=== PATIENT | female | born 1985 | race Caucasian/White ===

== ENCOUNTER 2022-03-02 12:25 | Emergency (ER) | payer OTHER, SELFPAY ==
--- NOTE | 2022-03-02 13:12 | ED.NURSE ---
pt left without being seen
== END 2022-03-02 13:12 | disposition left against medical advice (07) ==
LOC: ED 13:10
PROVIDERS: PCP Physician Assistant Medical
DX: Z53.21 Procedure and treatment not carried out due to patient leaving prior to being seen by health care provider (principal)

== ENCOUNTER 2022-03-06 06:46 | Emergency (ER) | payer OTHER, SELFPAY ==
[2022-03-06 06:51] VITALS: BP 105/62; PULSE 94; RESP 18; TEMP 36.6; O2SAT 98; BMI 24.6
--- NOTE | 2022-03-06 07:16 | ED.GENADULT ---
HPI - General Adult General Date Seen: 03/06/22 <Wolf Luis MD - Last Filed: 03/06/22 08:05> Chief complaint: Abdominal Pain <Wolf Luis MD - Last Filed: 03/06/22 08:05> Stated complaint: vomitting <Wolf Luis MD - Last Filed: 03/06/22 08:05> Time Seen by Provider: 03/06/22 06:50 <Wolf Luis MD - Last Filed: 03/06/22 08:05> Source: patient <Wolf Luis MD - Last Filed: 03/06/22 08:05> Mode of arrival: ambulatory <Wolf Luis MD - Last Filed: 03/06/22 08:05> Limitations: no limitations <Wolf Luis MD - Last Filed: 03/06/22 08:05> History of Present Illness HPI narrative: Patient is a 36-year-old female who comes in with couple of weeks abdominal pain and nausea. This is gotten worse over the past for five days. She came to the emergency department four days ago but left without being seen. Since that time she continues to have epigastric pain and nausea. She started Ozempic six or eight weeks ago for weight loss and did not have nausea after the 1st couple of injections. She denies a feeling of acid reflux but does intermittently take Carafate when she gets this type of pain. Year ago she underwent a laparoscopy for pelvic pain that found nothing. She has had no black or bloody stools. She has never had an EGD. Couple of bowel movements she that she has had in the past week have both been loose. Last night she feels that she may have over eaten the pain came on around 10:00 a.m. in the evening and lasted all night. She has not taken anything to help with pain. There are no specific foods that trigger her symptoms. She only drinks water. No one else at home has been ill. She takes some vitamins and herbal remedies given to her by a credit control officer thick who did a GI mapping and told her that her bad bacteria are over growing her good bacteria. <Wolf Luis MD - Last Filed: 03/06/22 08:05> Related Data Home medications: Home Medications Medication Instructions Recorded Confirmed semaglutide 1 mg/dose (2 mg/1.5 0.25 mg subcut QWEEK 03/06/22 03/06/22 mL) subcutaneous pen injector (Ozempic) <Wolf Luis MD - Last Filed: 03/06/22 08:05> Allergies/adverse reactions: Allergies Allergy/AdvReac Type Severity Reaction Status Date / Time morphine Allergy Mild Rash Verified 03/06/22 08:06 amoxicillin Allergy Verified 03/06/22 08:06 sertraline [From Zoloft] Allergy Verified 03/06/22 08:06 <Wolf Luis MD - Last Filed: 03/06/22 08:05> Review of Systems Narrative: Review of systems is outlined above otherwise noted to be negative. <Wolf Luis MD - Last Filed: 03/06/22 08:05> PFSH PFSH Social History: Social History Smoking Status: Former smoker Do you use any of these nicotine containing products: None Second hand tobacco smoke exposure: No How often do you have a drink containing alcohol: 2-4 times a month How many standard drinks containing alcohol do you have on a typical day: 1 or 2 How often do you have six or more drinks on one occasion: Never AUDIT-C Alcohol total score: 2 Non-prescribed substance use: denies use <Wolf Luis MD - Last Filed: 03/06/22 08:05> Exam Narrative: Exam Narrative: Vitals noted. HEENT: Conjunctiva clear. Neck is supple without adenopathy, thyromegaly. Lungs: Clear to auscultation in all [place]. No wheezes, rales, rhonchi. Heart: Regular rate and rhythm without murmur. Abdomen: Soft and nontender. No guarding, rigidity, rebound. Bowel sounds are normal. No palpable masses. Mild epigastric tenderness. Negative Fernandes sign. Extremities: No cyanosis or edema. Good distal pulses. Skin: No abnormalities noted of the exposed skin. Neurologic: Awake, alert, fully oriented. Neurologic exam is nonfocal. <Wolf Luis MD - Last Filed: 03/06/22 08:05> Const: Vital Signs, click to edit/add: Vital Signs - 24 hr 03/06/22 06:51 Temperature 97.8 F Pulse Rate [Right Pulse Oximeter] 94 Respiratory Rate 18 Blood Pressure [Ri ght Upper Arm] 105/62 Pulse Oximetry 98 Oxygen Delivery Me thod Room Air <Wolf Luis MD - Last Filed: 03/06/22 08:05> Vital Signs, click to edit/add: Vital Signs - 24 hr 03/06/22 06:51 Temperature 97.8 F Pulse Rate [Right Pulse Oximeter] 94 Respiratory Rate 18 Blood Pressure [Ri ght Upper Arm] 105/62 Pulse Oximetry 98 Oxygen Delivery Me thod Room Air <Zoey Henderson MD - Last Filed: 03/06/22 09:10> Course Course Hospital Course: Patient was seen and examined. Labs and a CT of her abdomen and pelvis are ordered. IV is established and she received 1 L of normal saline as well as 4 mg of IV Zofran. She declines the need for pain medication at this time. <Wolf Luis MD - Last Filed: 03/06/22 08:05> Reevaluation(s) Reevaluation #1: Reviewed patient's CT with her showing some possible enteritis. Reviewed her normal labs that were ordered. She had questions whether she should stay on her Ozempic. Did call Pharmacy in review this with them. It is my opinion that she should hold this for the time being certainly. It will not harm her to hold it and may actually help her symptoms. We will go under the assumption that she is having an acute issue with enteritis but there are components to her story that show some chronicity over the last 2 months. She has had no international travel. She states she had seen a GI specialist before and they had scheduled her for an upper GI but life happened in she never went through with that. I have reviewed with her that she should talk to the GI specialist, give them this CT report and given the underlying chronicity of some of her symptoms, would recommend following through with the EGD. There could be a possibility of inflammatory bowel disease presentation. We will initiate Protonix and Zofran for outpatient management of symptoms with probable enteritis on CT. <Zoey Henderson MD - Last Filed: 03/06/22 09:10> Time: 09:06 <Zoey Henderson MD - Last Filed: 03/06/22 09:10> Vital Signs Vital signs: Initial Vital Signs Temperature 97.8 F 03/06/22 06:51 Temperature Source Temporal Artery Scan 03/06/22 06:51 Pulse Rate 94 03/06/22 06:51 Respiratory Rate 18 03/06/22 06:51 Blood Pressure 105/62 03/06/22 06:51 Blood Pressure Mean 76 03/06/22 06:51 Blood Pressure Position Sitting 03/06/22 06:51 Pulse Oximetry 98 03/06/22 06:51 Oxygen Delivery Method 03/06/22 06:51 Vital Signs Temperature 97.8 F 03/06/22 06:51 Pulse Rate 94 03/06/22 06:51 Respiratory Rate 18 03/06/22 06:51 Blood Pressure 105/62 03/06/22 06:51 Pulse Oximetry 98 03/06/22 06:51 Oxygen Delivery Method 03/06/22 06:51 Temperature 97.8 F 03/06/22 06:51 Pulse Rate 94 03/06/22 06:51 Respiratory Rate 18 03/06/22 06:51 Blood Pressure 105/62 03/06/22 06:51 Pulse Oximetry 98 03/06/22 06:51 Oxygen Delivery Method 03/06/22 06:51 <Wolf Luis MD - Last Filed: 03/06/22 08:05> Initial Vital Signs Temperature 97.8 F 03/06/22 06:51 Temperature Source Temporal Artery Scan 03/06/22 06:51 Pulse Rate 94 03/06/22 06:51 Respiratory Rate 18 03/06/22 06:51 Blood Pressure 105/62 03/06/22 06:51 Blood Pressure Mean 76 03/06/22 06:51 Blood Pressure Position Sitting 03/06/22 06:51 Pulse Oximetry 98 03/06/22 06:51 Oxygen Delivery Method 03/06/22 06:51 Vital Signs Temperature 97.8 F 03/06/22 06:51 Pulse Rate 94 03/06/22 06:51 Respiratory Rate 18 03/06/22 06:51 Blood Pressure 105/62 03/06/22 06:51 Pulse Oximetry 98 03/06/22 06:51 Oxygen Delivery Method 03/06/22 06:51 Temperature 97.8 F 03/06/22 06:51 Pulse Rate 94 03/06/22 06:51 Respiratory Rate 18 03/06/22 06:51 Blood Pressure 105/62 03/06/22 06:51 Pulse Oximetry 98 03/06/22 06:51 Oxygen Delivery Method 03/06/22 06:51 <Zoey Henderson MD - Last Filed: 03/06/22 09:10> Medical Decision Making Lab Data Lab results reviewed: Yes I reviewed the patient's lab results <Zoey Henderson MD - Last Filed: 03/06/22 09:10> Labs: Lab Results 03/06/22 03/06/22 Range/Units 07:30 07:30 WBC 7.29 (4.50-11.00) K/uL RBC 4.53 (4.00-5.20) m/uL Hgb 13.2 (12.0-16.0) gm/dL Hct 40.1 (33.0-51.0) % MCV 89 (80-100) fL MCH 29 (26-34) pg MCHC 33 (32-36) gm/dL RDW Coeff of [place] 13.0 (11.5-15.5) % Plt Count 223 (140-440) K/uL Neut % (Auto) 59.3 (42.0-72.0) % Lymph % (Auto) 28.8 (20-44) % [place] % (Auto) 6.9 (0.0-11.0) % Eos % (Auto) 4.3 (0.0-7.0) % Baso % (Auto) 0.7 (0.0-3.0) % Neut # (Auto) 4.33 (1.7-7.0) K/uL Lymph # (Auto) 2.10 (0.90-2.90) K/uL [place] # (Auto) 0.50 (0.00-0.90) K/UL Eos # (Auto) 0.31 (0.00-0.50) K/uL Baso # (Auto) 0.05 (0.00-0.30) K/uL Abs Immat Gran (auto) 0.00 (0.00-0.30) K/uL Imm/Tot Granulo (auto) 0.0 % Sodium 139 (135-149) mmol/L Potassium 4.6 (3.6-5.1) mmol/L Chloride 105 (96-114) mmol/L Carbon Dioxide 25 (20-32) mmol/L BUN 13 (5-24) mg/dL Creatinine 0.7 (0.5-1.5) mg/dL Estimated Creat Clear 105.97 Estimated GFR 113 ml/min Glucose 84 (60-115) mg/dL Calcium 9.3 (8.4-10.6) mg/dL Total Bilirubin 0.6 (0.1-1.5) mg/dL Direct Bilirubin 0.2 (0.0-0.5) mg/dL AST 37 H (12-35) U/L ALT 20 (4-35) U/L Alkaline Phosphatase 48 (40-150) U/L Total Protein 6.8 (6.0-8.3) g/dL Albumin 4.5 (3.3-5.0) g/dL Lipase 109 (23-300) U/L <Wolf Luis MD - Last Filed: 03/06/22 08:05> Lab Results 03/06/22 03/06/22 Range/Units 07:30 07:30 WBC 7.29 (4.50-11.00) K/uL RBC 4.53 (4.00-5.20) m/uL Hgb 13.2 (12.0-16.0) gm/dL Hct 40.1 (33.0-51.0) % MCV 89 (80-100) fL MCH 29 (26-34) pg MCHC 33 (32-36) gm/dL RDW Coeff of [place] 13.0 (11.5-15.5) % Plt Count 223 (140-440) K/uL Neut % (Auto) 59.3 (42.0-72.0) % Lymph % (Auto) 28.8 (20-44) % [place] % (Auto) 6.9 (0.0-11.0) % Eos % (Auto) 4.3 (0.0-7.0) % Baso % (Auto) 0.7 (0.0-3.0) % Neut # (Auto) 4.33 (1.7-7.0) K/uL Lymph # (Auto) 2.10 (0.90-2.90) K/uL [place] # (Auto) 0.50 (0.00-0.90) K/UL Eos # (Auto) 0.31 (0.00-0.50) K/uL Baso # (Auto) 0.05 (0.00-0.30) K/uL Abs Immat Gran (auto) 0.00 (0.00-0.30) K/uL Imm/Tot Granulo (auto) 0.0 % Sodium 139 (135-149) mmol/L Potassium 4.6 (3.6-5.1) mmol/L Chloride 105 (96-114) mmol/L Carbon Dioxide 25 (20-32) mmol/L BUN 13 (5-24) mg/dL Creatinine 0.7 (0.5-1.5) mg/dL Estimated Creat Clear 105.97 Estimated GFR 113 ml/min Glucose 84 (60-115) mg/dL Calcium 9.3 (8.4-10.6) mg/dL Total Bilirubin 0.6 (0.1-1.5) mg/dL Direct Bilirubin 0.2 (0.0-0.5) mg/dL AST 37 H (12-35) U/L ALT 20 (4-35) U/L Alkaline Phosphatase 48 (40-150) U/L Total Protein 6.8 (6.0-8.3) g/dL Albumin 4.5 (3.3-5.0) g/dL Lipase 109 (23-300) U/L <Zoey Henderson MD - Last Filed: 03/06/22 09:10> Imaging Data CT scan - abdomen: Attestation: I have reviewed the pertinent imaging results. <Zoey Henderson MD - Last Filed: 03/06/22 09:10> Radiologist's impression: Patient: RYNE VASQUEZ Facility:?[facility] Patient ID:?[id number] Site Patient ID:?[id number]. Site :?[id number] Study:?CT Abdomen/Pelvis W/ 77CC [id number]/[id number] 8:07:07 AM Ordering Physician:Compa Bloom Final Report: INDICATION: ABD PAIN TECHNIQUE: CT abdomen and pelvis with 77 CC ISOVUE-370 IV contrast. COMPARISON: None. FINDINGS: The liver is normal in size, shape and attenuation. Hypodensity adjacent to the falciform ligament which likely represents focal fatty infiltrate. Gallbladder and biliary tree are normal. The spleen, adrenal glands and pancreas are within normal limits. Few punctate nonobstructing left intrarenal calculi. No evidence of ureteral stone or hydronephrosis. Minimally dilated fluid-filled loops of small bowel throughout the abdomen which are nonspecific but may relate to a mild enteritis. No evidence of bowel obstruction. The appendix appears unremarkable. No evidence of free fluid. Trace nonspecific free fluid within the pelvis which is likely physiologic. Small amount of nonspecific fluid within the endometrial cavity. The lower chest is unremarkable. IMPRESSION: Minimally dilated fluid-filled loops of small bowel throughout the abdomen which are nonspecific but may relate to a mild enteritis. Otherwise, no evidence of acute intra-abdominal process. Few punctate nonobstructing left intrarenal calculi. No evidence of ureteral stone or hydronephrosis. Please note that all CT scans at this facility use dose modulation, iterative reconstruction, and/or weight-based dosing when appropriate to reduce radiation dose to as low as reasonably achievable. Dictated by Gualberto Lofton MD @ 03/06/2022 8:40:09 AM (Electronic Signature) <Zoey Henderson MD - Last Filed: 03/06/22 09:10> Critical Care Time Critical Care Time Critical Care Time: No <Zoey Henderson MD - Last Filed: 03/06/22 09:10> Discharge Plan Discharge Clinical Impression: Enteritis <Wolf Luis MD - Last Filed: 03/06/22 08:05> Condition: Stable <Wolf Luis MD - Last Filed: 03/06/22 08:05> Instructions: Enteritis (ED) <Wolf Luis MD - Last Filed: 03/06/22 08:05> Additional Instructions: Would recommend frequent small sips of clear liquids for the next 24-48 hours, see if you can advance your diet at that point. Take Protonix daily for the next 1-2 weeks, use Zofran as needed to help control nausea so that you can take in fluids. I do recommend that you contact your private branch exchange installer, share the new report of the enteritis on the CT and her ongoing underlying epigastric symptoms preceding this. I do think that you should follow through with having an upper scope. If with the outlined measures you were still unable to tolerate oral fluids, have increased abdominal pain develops fever with this, do need to be re-evaluated. Do recommend holding the Ozempic until you are improving. <Wolf Luis MD - Last Filed: 03/06/22 08:05> Activity Level: Activity as Tolerated <Wolf Luis MD - Last Filed: 03/06/22 08:05> Activity as Tolerated <Zoey Henderson MD - Last Filed: 03/06/22 09:10> Discharge Diet: Clear Liquid <Wolf Luis MD - Last Filed: 03/06/22 08:05> Clear Liquid <Zoey Henderson MD - Last Filed: 03/06/22 09:10> Prescriptions: No Action Ozempic 1 mg/dose (2 mg/1.5 mL) pen injector 0.25 mg subcut QWEEK Rx Instructions: for 4 doses <Wolf Luis MD - Last Filed: 03/06/22 08:05> Follow Up/Referrals: Sakina Fitzgerald PA-C [Primary Care Provider] - <Wolf Luis MD - Last Filed: 03/06/22 08:05> Stand Alone Forms: MyHealth Info Instructions <Wolf Luis MD - Last Filed: 03/06/22 08:05>
--- NOTE | 2022-03-06 07:18 | CRLHL7_ITS ---
For Patients: As a result of the Century Cures Act, medical imaging exams and procedure reports are released immediately into your electronic medical record. You may view this report before your referring provider. If you have questions, please contact your health care provider. INDICATION: ABD PAIN TECHNIQUE: CT abdomen and pelvis with 77 CC ISOVUE-370 IV contrast. COMPARISON: None. FINDINGS: The liver is normal in size, shape and attenuation. Hypodensity adjacent to the falciform ligament which likely represents focal fatty infiltrate. Gallbladder and biliary tree are normal. The spleen, adrenal glands and pancreas are within normal limits. Few punctate nonobstructing left intrarenal calculi. No evidence of ureteral stone or hydronephrosis. Minimally dilated fluid-filled loops of small bowel throughout the abdomen which are nonspecific but may relate to a mild enteritis. No evidence of bowel obstruction. The appendix appears unremarkable. No evidence of free fluid. Trace nonspecific free fluid within the pelvis which is likely physiologic. Small amount of nonspecific fluid within the endometrial cavity. The lower chest is unremarkable. IMPRESSION: Minimally dilated fluid-filled loops of small bowel throughout the abdomen which are nonspecific but may relate to a mild enteritis. Otherwise, no evidence of acute intra-abdominal process. Few punctate nonobstructing left intrarenal calculi. No evidence of ureteral stone or hydronephrosis. Please note that all CT scans at this facility use dose modulation, iterative reconstruction, and/or weight-based dosing when appropriate to reduce radiation dose to as low as reasonably achievable. Dictated by Gualberto Lofton MD @ 03/06/2022 8:40:09 AM (Electronically Signed)
[2022-03-06] MEDS: ONDANSETRON 2 MG/ML inj 4 MG IVP (07:45)
[2022-03-06] MEDS: 0.9 % SODIUM CHLORIDE 1000 ml 1,000 ML 500 ML IV (07:45)
[2022-03-06 07:48] LABS: Basophils Absolute Auto 0.05 K/uL (0.00-0.30); Basophils Percent Auto 0.7 % (0.0-3.0); Eosinophils Absolute Auto 0.31 K/uL (0.00-0.50); Eosinophils Percent Auto 4.3 % (0.0-7.0); Hematocrit 40.1 % (33.0-51.0); Hemoglobin* 13.2 gm/dL (12.0-16.0); Lymphocytes Percent Auto 28.8 % (20-44); Mean Corpuscular HGB Conc 33 gm/dL (32-36); Mean Corpuscular Hemoglobin 29 pg (26-34); Mean Corpuscular Volume 89 fL (80-100); Monocytes Percent Auto 6.9 % (0.0-11.0); Neutrophils Absolute Auto 4.33 K/uL (1.7-7.0); Neutrophils Percent Auto 59.3 % (42.0-72.0); Platelet Count* 223 K/uL (140-440); Red Blood Count 4.53 m/uL (4.00-5.20); White Blood Count* 7.29 K/uL (4.50-11.00)
[2022-03-06 08:03] LABS: Slide Review Reflex No
[2022-03-06 08:14] LABS: Albumin* 4.5 g/dL (3.3-5.0); Chloride* 105 mmol/L (96-114)
[2022-03-06 08:15] LABS: Potassium* 4.6 mmol/L (3.6-5.1); Sodium* 139 mmol/L (135-149)
[2022-03-06 08:17] LABS: Bilirubin Direct* 0.2 mg/dL (0.0-0.5); Bilirubin Total* 0.6 mg/dL (0.1-1.5); Carbon Dioxide* 25 mmol/L (20-32); Creatinine* 0.7 mg/dL (0.5-1.5); Est. Creatinine Clearance* 105.97; Estimated Glomerular Filt Rate 113 ml/min; Total Protein* 6.8 g/dL (6.0-8.3)
[2022-03-06 08:18] LABS: Alanine Aminotransferase* 20 U/L (4-35); Alkaline Phosphatase* 48 U/L (40-150); Aspartate Amino Transferase* 37 U/L (12-35); Blood Urea Nitrogen* 13 mg/dL (5-24); Calcium* 9.3 mg/dL (8.4-10.6); Glucose* 84 mg/dL (60-115); Lipase* 109 U/L (23-300)
== END 2022-03-06 09:28 | disposition home or self-care (01) ==
PROVIDERS: Family Medicine; Emergency Provider Family Medicine; PCP Physician Assistant Medical
DX: K52.9 Noninfective gastroenteritis and colitis, unspecified (principal)
CPT/HCPCS: 36415; 74177; 80048; 80076; 83690; 85025; 96361; 96374; 99284; J2405; J7030; Q9967

== ENCOUNTER 2023-09-18 17:51 | Emergency (ER) | payer MEDICARE, SELFPAY ==
[2023-09-18 17:58] VITALS: BP 112/72; PULSE 114; RESP 18; TEMP 37; O2SAT 100; BMI 23.5
--- NOTE | 2023-09-18 18:52 | ED.BACK ---
HPI - Back Pain/Injury General Chief Complaint: Back Injury/Pain Stated Complaint: Hurt back, fall Time Seen by Provider: 09/18/23 17:53 History of Present Illness HPI Narrative: This 37-year-old female comes in with rather sudden onset of severe pain in her low back that radiates down her right leg. She does have a history of lumbar radiculopathy and has had a surgery in her low back because of previous symptoms. Today she was bending some when she was mopping the floor and had rather sudden onset of pain that appears to be a recurrence of disc herniation and lumbar radiculopathy. She does not describe any other strenuous activity or mechanism of injury that would explain the symptoms. She is otherwise in good health. Related Data Previous Rx's ?Medication ?Instructions ?Recorded methylprednisolone 4 mg tablets in See Rx Instructions PO .COMPLEX 09/18/23 a dose pack (Medrol (Cheo)) #21 ea Allergies Allergy/AdvReac Type Severity Reaction Status Date / Time morphine Allergy Mild Rash Verified 06/30/22 15:27 amoxicillin Allergy Verified 06/30/22 15:27 sertraline [From Zoloft] Allergy Verified 06/30/22 15:27 Review of Systems Status of ROS: Reports: 10 or more systems reviewed and unremarkable except as noted in History and below Narrative: Constitutional: No fevers, no weight gain or loss. Eyes: No discharge. No vision changes. HENT: No congestion, no sore throat, no ear pain. Cardiovascular: No chest pain, no palpitations. Respiratory: No shortness of breath, no wheezes, no cough. Gastrointestinal: No abdominal pain, no vomiting, no diarrhea. Genitourinary: No dysuria, no hematuria. Musculoskeletal: Low back pain radiating down the right leg with decreased range of motion related to the pain. Skin: No rashes, no pruritis. Neurological: No dizziness, weakness, sensory change, speech change. Endo/Heme/Allergies: No bruising or bleeding. No polydipsia. Pysch: no suicidality, no anxiety, no insomnia. All other systems reviewed and are negative. [facility] Social History Smoking Status: Never smoker Do you use any of these nicotine containing products: None Second hand tobacco smoke exposure: No How often do you have a drink containing alcohol: 2-4 times a month How many standard drinks containing alcohol do you have on a typical day: 1 or 2 How often do you have six or more drinks on one occasion: Never AUDIT-C Alcohol total score: 2 Non-prescribed substance use: denies use Exam Narrative: Exam Narrative: Constitutional: Well-developed, well-nourished, no acute distress. HEENT: Normocephalic, atraumatic. Neck: Normal range of motion. Nontender. Supple. Heart: Regular. No murmurs. Normal rate. Intact distal pulses. Lungs: Clear to auscultation. No chest discomfort. No wheezes, rhonchi, or rales. Abdomen: Normal bowel sounds. Nontender. No rebound tenderness. Genitalia: Deferred. Back: No midline tenderness. Normal range of motion. Extremities: Normal range of motion. No injury. Skin: Intact. No rash. Warm. No erythema or pallor. Neurologic: No altered sensation. No weakness. Alert and oriented. Psychiatric: No suicidality. No anxiety or depression. No insomnia. Nursing notes and vitals signs are reviewed. Const: Vital Signs, click to edit/add: Vital Signs - 24 hr 09/18/23 17:58 Temperature 98.6 F Pulse Rate [Right Pulse Oximeter] 114 H Respiratory Rate 18 Blood Pressure [Ri ght Upper Arm] 112/72 Pulse Oximetry 100 Oxygen Delivery Me thod Room Air Course Vital Signs Vital signs: Initial Vital Signs Temperature 98.6 F 09/18/23 17:58 Temperature Source Temporal Artery Scan 09/18/23 17:58 Pulse Rate 114 H 09/18/23 17:58 Pulse Rhythm Regular 09/18/23 17:58 Pulse Strength 3+ Normal 09/18/23 17:58 Respiratory Rate 18 09/18/23 17:58 Blood Pressure 112/72 09/18/23 17:58 Blood Pressure Mean 85 09/18/23 17:58 Blood Pressure Position Sitting 09/18/23 17:58 Pulse Oximetry 100 09/18/23 17:58 Oxygen Delivery Method Room Air 09/18/23 17:58 Vital Signs Temperature 98.6 F 09/18/23 17:58 Pulse Rate 114 H 09/18/23 17:58 Respiratory Rate 18 09/18/23 17:58 Blood Pressure 112/72 09/18/23 17:58 Pulse Oximetry 100 09/18/23 17:58 Oxygen Delivery Method Room Air 09/18/23 17:58 Temperature 98.6 F 09/18/23 17:58 Pulse Rate 114 H 09/18/23 17:58 Respiratory Rate 18 09/18/23 17:58 Blood Pressure 112/72 09/18/23 17:58 Pulse Oximetry 100 09/18/23 17:58 Oxygen Delivery Method Room Air 09/18/23 17:58 MDM - Back Pain/Injury MDM Narrative Medical decision making narrative: This 37-year-old female comes in with recurrence of low back pain similar to what she had a few years ago. The pain is radiating down her right leg typical of a lumbar radiculopathy. She did not have any mechanism of injury that would mandate imaging at this time. The patient did receive an intramuscular injection of morphine 1 mg. I did also provide [facility] prescriptions for Toradol, Flexeril, and Percocet. A prescription for Medrol Dosepak is provided to be filled at her pharmacy. I advised her to follow-up with her spine clinic or with our local spine clinic for ongoing management. Discharge Plan Discharge Clinical Impression: Lumbar radiculopathy Patient Disposition: Home w/ Parent or Adult Condition: Unchanged Additional Instructions: Take medication as prescribed. Activity as tolerated. Follow up with spine clinic. The spine clinic here can be reached by dialing [phone]. Return if worsening. Prescriptions: New methylprednisolone [Medrol (Cheo)] 4 mg tablets,dose pack See Rx Instructions .ROUTE .COMPLEX Qty: 21 0RF Rx Instructions: orally per package directions Follow Up/Referrals: Sakina Fitzgerald PA-C [Primary Care Provider] - Stand Alone Forms: [employer] Info Instructions
--- OUTSIDE RECORDS SUMMARY | 2023-09-18 19:02 | XMS_ITS | Encounter Summary ---
Author Organization [facility] Address [address] [place] [id number] Care Team Providers Care Data Integration Architect Name Role Phone Grace Butler MD Primary Care Provide r Corina Riley APRN PUBLISHING SYSTEMS ANALYST Unavailable Michaela Etienne MD Unavailable [phone] Corina Riley APRN PUBLISHING SYSTEMS ANALYST Unavailable Michaela Etienne MD Unavailable [phone] [facility] Primary Care Provider Encounter Details Date Type Department Care Team (Late st Contact Info) Description 01/07/2013 Telephone [facility] Behavioral Health Intake [address] [place] [id number] Generic, Behavioral Intake, Social History Tobacco Use Types Packs/Day Years Used Date Smoking Tobacco: Every Day Smokeless Tobacco: Never Alcohol Use Standard Drinks/Week Comments Yes 0 (1 standard drink = 0.6 oz pur e alcohol) occassionally Sex and Gender Information Value Date Recorded Sex Assigned at Not on file Gender Identity Not on file Sexual Orientation Not on file documented as of this encounter Miscellaneous Notes * Telephone Encounter - Sakina Gonzales Edita - 01/07/2013 6:17 AM CDT 01/07/13 S: pt was bib ems to [facility]. Pt overdosed as a suicide attempt. B: pt overdosed on 10mg ativan and 200mg paxil. Pt also drank a couple of beers. Pt texted a friendthat she was suicidal and ems found pt very drowsy. Stressors for pt include recent separation fromsband. Pt denies being suicidal in the er. A: pt remains voluntary at this time. R: admit juan documented in this encounter Plan of Treatment Not on file documented as of this encounter Visit Diagnoses Not on filedocumented in this encounter Care Teams Data Integration Architect Relationship Specialty Start Date End Date Grace Butler MD PCP - General Pediatrics 06/03/12 10/12/18 Corina Riley APRN PUBLISHING SYSTEMS ANALYST [address] [place] [address] ERWIN RUBI [id number] PCP - Assigned PCP 07/05/16 06/04/18 Michaela Etienne MD [address] [place] [address] ERWIN RUBI [id number] PCP - Assigned PCP 06/05/18 06/28/[address] [id number] PCP - General 10/13/18 Corina Riley APRN PUBLISHING SYSTEMS ANALYST [address] [place] [address] [place] RUBI [id number] Assigned PCP 07/05/16 06/04/18 Michaela Etienne MD [address] [place] [address] ERWIN RUBI [id number] Assigned PCP 06/05/18 3 documented as of this encounter
--- OUTSIDE RECORDS SUMMARY | 2023-09-18 19:02 | XMS_ITS | Encounter Summary ---
Author Organization [facility] Address [address] [place] [address] Care Team Providers Care Test Rack Operator Name Role Phone Grace Butler MD Primary Care Provide r Corina Riley APRN SURGICAL INSTRUMENT TECHNICIAN Unavailable Michaela Etienne MD Unavailable [phone] Corina Riley APRN SURGICAL INSTRUMENT TECHNICIAN Unavailable Michaela Etienne MD Unavailable [phone] [facility] Primary Care Provider Reason for Referral * Referral not Required - Closed Specialty Diagnoses / Procedures Referred By Contac t Referred To Contact Diagnoses Chronic abdominal pain Grace Butler MD [address] [place] [address] [facility] [address] [place] [address] Referral ID Status Reason Start Date Expiration Date Visits Re quested Visits Authorized [id number] Closed 08/15/2012 02/11/2013 1 1 Comments Coverage of these services is subject to the terms and limitations of your health insurance plan. Please call member services at your health plan with any benefit or coverage questions. Any procedures must be performed at a [facility] facility OR coordinated by your clinic's referral office. REFERRAL ONLY - [facility]: [facility] Executive: For Referral only, order will be sent to appropriate clinic contact by [facility]. Clinic order for referral is routed to [facility] Automatically. Appt. Line [phone]. (This includes [facility], [facility], & Dr. Killian). Place specific group or provider in comment field. Reason for Visit * Reason Onset Date Comments Abdominal Pain 08/15/2012 For the past 2.5 years Encounter Details Date Type Department Care Team (Late st Contact Info) Description 08/15/2012 MyC Medical Advice [address] [phone] Grace Butler MD [address] [place], [place] [phone] Abdominal Pain (For the past 2.5 years) Social History Tobacco Use Types Packs/Day Years Used Date Smoking Tobacco: Never Smokeless Tobacco: Never Alcohol Use Standard Drinks/Week Comments Yes 0 (1 standard drink = 0.6 oz pur e alcohol) occassionally Sex and Gender Information Value Date Recorded Sex Assigned at Not on file Gender Identity Not on file Sexual Orientation Not on file documented as of this encounter Miscellaneous Notes * Telephone Encounter - Fang Bell - 08/15/2012 3:59 PM CDT Referral begun for consultation with GI. Lexy Bell RN documented in this encounter Plan of Treatment Scheduled Referrals Name Type Priority Associated Diagnoses Orde r Schedule GASTROENTEROLOGY ADULT REFERRAL +/- PROCEDURE Referral Routine Chronic abdominal pain Ordered: 08/15/2012 documented as of this encounter Visit Diagnoses Diagnosis Chronic abdominal pain- Primary Abdominal pain, unspecified site documented in this encounter Care Teams Test Rack Operator Relationship Specialty Start Date End Date Grace Butler MD PCP - General Pediatrics 06/03/12 10/12/18 Corina Riley APRN SURGICAL INSTRUMENT TECHNICIAN [address] [place] [address] ERWIN RUBI [address] PCP - Assigned PCP 07/05/16 06/04/18 Michaela Etienne MD [address] [place] [address] ERWIN RUBI [address] PCP - Assigned PCP 06/05/18 06/28/[address] [address] PCP - General 10/13/18 Corina Riley APRN SURGICAL INSTRUMENT TECHNICIAN [address] [place] [address] ERWIN RUBI [address] Assigned PCP 07/05/16 06/04/18 Michaela Etienne MD [address] [place] [address] ERWIN RUBI [id number] Assigned PCP 06/05/18 07/09/18 documented as of this encounter
--- OUTSIDE RECORDS SUMMARY | 2023-09-18 19:02 | XMS_ITS | Encounter Summary ---
Author Organization [facility] Address [address] [place] [address] Care Team Providers Care Transformer Inspector Name Role Phone Grace Butler MD Primary Care Provide r Corina Riley APRN DIMENSION STONE QUARRY SUPERVISOR Unavailable Michaela Etienne MD Unavailable [phone] Corina Riley APRN DIMENSION STONE QUARRY SUPERVISOR Unavailable Michaela Etienne MD Unavailable [phone] [facility] Primary Care Provider Reason for Visit * Reason Onset Date Comments Pt. Information/instruction 02/09/2014 Encounter Details Date Type Department Care Team (Late st Contact Info) Description 02/09/2014 MyC Medical Advice [address] [phone] Maggi Zhao Y, PRESIDENTIAL SUPPORT SPECIALIST Pt. Information/instruct ion Social History Tobacco Use Types Packs/Day Years Used Date Smoking Tobacco: Former Smokeless Tobacco: Never Comments:Just quit smoking Alcohol Use Standard Drinks/Week Comments No 0 (1 standard drink = 0.6 oz pur e alcohol) Not during . Comments Yes Sex and Gender Information Value Date Recorded Sex Assigned at Not on file Gender Identity Not on file Sexual Orientation Not on file documented as of this encounter Plan of Treatment Not on file documented as of this encounter Visit Diagnoses Not on filedocumented in this encounter Care Teams Transformer Inspector Relationship Specialty Start Date End Date Grace Butelr MD PCP - General Pediatrics 06/03/12 10/12/18 Corina Riley APRN DIMENSION STONE QUARRY SUPERVISOR [address] [place] [address] ERWIN RUBI [id number] PCP - Assigned PCP 07/05/16 06/04/18 Michaela Etienne MD [address] [place] [address] ERWIN RUBI [address] PCP - Assigned PCP 06/05/18 06/28/[address] [address] PCP - General 10/13/18 Corina Riley, ASSISTANT PROFESSOR OF BIOCHEMISTRY DIMENSION STONE QUARRY SUPERVISOR [address] [place] [address] ERWIN RUBI [address] Assigned PCP 07/05/16 06/04/18 Michaela Etienne MD [address] [place] [address] ERWIN RUBI [id number] Assigned PCP 06/05/18 07/09/18 documented as of this encounter
--- OUTSIDE RECORDS SUMMARY | 2023-09-18 19:02 | XMS_ITS | Referral Summary ---
Author Organization [facility] Address [address] [place] [address] Care Team Providers Care Hand Trimmer Name Role Phone Clinic, [facility] Primary Care Provider Allergies Active Allergy Reactions Criticality Noted Date Comments Amoxicillin Hives 06/03/2012 Morphine Sulfate 06/03/2012 Oxycodone Itching 01/04/2015 Zoloft 01/18/2013 Itching, rash Medications Medication Sig Dispensed Refills Start Date End Date Status levonorgestrel (MIRENA) 20 MCG/24HR IUDIndications:Encou nter for insertion of intrauterine contraceptive device 1 each (20 mcg) by Intrauterine route once for 1 dose 1 each 0 05/01/2015 Active HYDROcodone-acetamin ophen (NORCO) 5-325 MG per tablet Take 1-2 tablets by mouth every 4 hours as needed for pain 15 tablet 0 10/16/2015 Active Active Problems Problem Noted Date Diagnosed Date Encounter for insertion of i ntrauterine contraceptive device 05/01/2015 Overview: mirena placed May 01, 2015 Remove 04/2020 Not immune to rubella 06/30/2013 Overview: Do you wish to do the replacement in the background? yes Severe major depression 01/18/2013 Overview: Paxil- fatigue zoloft- rash and itching. celexa and lexapro- thinks had jaw locking Generalized anxiety disorder 01/18/2013 Health Snf 01/18/2013 Overview: Teletype Operator: Nilam Jovel See Letters for Emergency Care Plan Overdose 01/07/2013 CARDIOVASCULAR SCREENING; LDL GOAL LESS THAN 160 06/03/2012 Family history of breast cancer in mother 2012 Resolved Problems Problem Noted Date Diagnosed Date Resolved Date Indication for care in labor or delivery 11/23/2014 01/04/2015 (spontaneous vaginal delivery) 11/23/2014 01/04/2015 Indication for care in labor or delivery 10/04/2014 11/21/2014 Encounter for supervision of other normal 05/29/2014 01/04/2015 Overview: Diagnosis updated by automated process. Provider to review and confirm. Immunizations Name Administration Dates Next Due Influenza (IIV3) PF 06/03/2012 MMR 11/25/2014 TDAP (Adacel,Boostrix) 02/24/2011 TDAP Vaccine (Adacel) 11/02/2014 Social History Tobacco Use Types Packs/Day Years Used Date Smoking Tobacco: Former Cigarettes Q uit: 06/24/2013 Smokeless Tobacco: Never Tobacco Cessation:Counseling Given: Yes Alcohol Use Standard Drinks/Week Comments Yes 1 (1 standard drink = 0.6 oz pur e alcohol) Adolescent Education Answer Date Record ed Getting School Help Needed Not on file 01/15 Sex and Gender Information Value Date Recorded Sex Assigned at Not on file Gender Identity Not on file Sexual Orientation Not on file Last Filed Vital Signs Vital Sign Reading Time Taken Comments Blood Pressure 119/87 03/05/2022 11:07 PM CUPROUS CHLORIDE HELPER Pulse 93 03/05/2022 11:07 PM CUPROUS CHLORIDE HELPER Temperature 36.8 ??C (98.2 ??F) 03/05/2022 11:[address] Respiratory Rate 18 03/05/2022 11:07 PM CUPROUS CHLORIDE HELPER Oxygen Saturation 97% 03/05/2022 11:07 PM CUPROUS CHLORIDE HELPER Inhaled Oxygen Concentration - - Weight 71.2 kg (157 lb) 03/05/2022 11:07 PM CUPROUS CHLORIDE HELPER Height 172.7 cm (5' 8) 03/05/2022 11:07 PM CUPROUS CHLORIDE HELPER Body Mass Index 23.87 03/05/2022 11:07 PM CUPROUS CHLORIDE HELPER Plan of Treatment Not on file Procedures Procedure Name Priority Date/Time Associated Diagnosis Comments BASIC METABOLIC PANEL STAT 10/16/2015 4:33 PM CDT HIV ANTIGEN ANTIBODY COMBO Routine 05/29/2014 9:06 AM CUPROUS CHLORIDE HELPER Supervision of other normal , first trimester [V22.1] ABSTRACT PAP (HIM EXTERNAL RESULT) Routine 05/27/2013 from Last 3 Months or Most Recently Relevant to Health Maintenance Results * (ABNORMAL) Basic metabolic panel (10/16/2015 4:33 PM CDT) Sodium 139 133 - 144 mmol/L [facility] Potassium 3.5 3.4 - 5.3 mmol/L [facility] Chloride 107 94 - 109 mmol/L [facility] Carbon Dioxide 27 20 - 32 mmol/L [facility] Anion Gap 5 3 - 14 mmol/L [facility] Glucose 100(H) 70 - 99 mg/dL [facility] Urea Nitrogen 16 7 - 30 mg/dL [facility] Creatinine 1.18(H) 0.52 - 1.04 mg/dL [facility] GFR Estimate 53(L) >60 mL/min/1.7 m2 [facility] Comment:Non GFR Calc GFR Estimate If Black 64 >60 mL/min/1.7 m2 [facility] Comment: GFR Calc Calcium 9.1 8.5 - 10.1 mg/dL [facility] Blood specimen (specimen) 10/16/2015 4:33 PM CDT 10/16/2015 4:44 PM CDT Mustapha Negro MD LAB - BLOOD MICHELLE ADDISON [facility] [address] [place], [place] [address] [phone] * HIV Antigen Antibody Combo (05/29/2014 9:06 AM CUPROUS CHLORIDE HELPER) HIV Antigen Antibody Combo Nonreactive HIV-1 p24 Ag & HIV-1/HIV-2 Ab Not Detected NR [facility] Blood specimen (specimen) 05/29/2014 9:06 AM CUPROUS CHLORIDE HELPER 05/29/2014 9:07 AM CUPROUS CHLORIDE HELPER Saida Ramirez MD LAB - BLOOD MICHELLE ALEXANDERFABIANA [facility] [address] [place] [address] * ABSTRACT PAP-NO CHARGE (05/27/2013) 05/27/2013 Narrative EXTERNAL LAB - 05/27/2013 Patient Reported: Pap smear done May 2013 Patient Reported LAB - HIM EXTERNAL R ESULT EXTERNAL LAB External Lab from Last 3 Months or Most Recently Relevant to Health Maintenance Advance Directives For more information, please contact: [phone] * Full Code (Latest Code Status on File) Date Activated Date Inactivated Comments 01/07/2013 10:32 AM 01/09/2013 7:49 PM Care Teams Hand Trimmer Relationship Specialty Start Date End Date Clinic, [facility] [address] [place] [address] PCP - General 10/13/18
--- OUTSIDE RECORDS SUMMARY | 2023-09-18 19:02 | XMS_ITS | Clinical Summary ---
Author Organization [facility] Address [address] [place] [address] Care Team Providers Care Fire Equipment Inspector Helper Name Role Phone Clinic, [facility] Primary Care Provider Allergies Active Allergy Reactions [...] jaw locking Generalized anxiety disorder 01/18/2013 Health Correction 01/18/2013 Overview: Professional Wrestler: Nilam Jovel See Letters for Emergency Care [...] TDAP (Adacel,Boostrix) 02/24/2011 TDAP Vaccine (Adacel) 11/02/2014 Family History Medical History Relation Comments Psychotic Disorder Brother 4 schizophrenia Alcohol/Drug Brother 5 Alcohol/Drug Father Unknown/Adopted Father Alcohol/Drug Maternal Grandfather Breast Cancer Mother uncertain menopa usal status- non genetic- s C.A.D. Paternal Grandfather Coronary Artery Disease Paternal Grandfather Relation Status Comments Brother 1 Alive Brother 2 Alive Brother 3 Alive Brother 4 Brother 5 Father Alive Maternal Grandfather Mother Alive Paternal Grandfather Social History Tobacco Use Types Packs/Day Years [...] Comments Blood Pressure 119/87 03/05/2022 11:07 PM EXECUTIVE PASTRY CHEF Pulse 93 03/05/2022 11:07 PM EXECUTIVE PASTRY CHEF Temperature 36.8 ??C (98.2 ??F) 03/05/2022 11:[address] Respiratory Rate 18 03/05/2022 11:07 PM EXECUTIVE PASTRY CHEF Oxygen Saturation 97% 03/05/2022 11:07 PM EXECUTIVE PASTRY CHEF Inhaled Oxygen Concentration - - Weight 71.2 kg (157 lb) 03/05/2022 11:07 PM EXECUTIVE PASTRY CHEF Height 172.7 cm (5' 8) 03/05/2022 11:07 PM EXECUTIVE PASTRY CHEF Body Mass Index 23.87 03/05/2022 11:07 PM EXECUTIVE PASTRY CHEF Plan of Treatment Health Maintenance Due Date Last Done Comments ADVANCE CARE PLANNING 1983 ANNUAL REVIEW OF HM ORDERS 1983 HEPATITIS C SCREENING 11/15/2001 HEPATITIS B IMMUNIZATION (1 of 3 - 19+ 3-dose series) 11/15/2002 YEARLY PREVENTIVE VISIT 06/03/2013 06/03/2012 PHQ-9 10/30/2015 05/01/2015, 01/25, 06/22/2013, Additional history exists PAP 05/27/2016 05/27/2013, 06/03/2012 GLUCOSE 10/15/2018 10/16/2015, 07/25, 07/05/2015, Additional history exists COVID-19 Vaccine ( season) 2022 INFLUENZA VACCINE (Season Ended) 2023 06/03/2012, 06/03/2012 DTAP/TDAP/TD IMMUNIZATION (3 - Td or Tdap) 11/02/2024 11/02/2014, 02/24/2011 HIV SCREENING Completed 05/29/2014, 06/27/2013 DEPRESSION ACTION PLAN Completed 05/01/2015, 2013 HPV IMMUNIZATION Aged Out No longer e ligible based on patient's age to complete this topic IPV IMMUNIZATION Aged Out No longer e ligible based on patient's age to complete this topic MENINGITIS IMMUNIZATION Aged Out No l onger eligible based on patient's age to complete this topic Pneumococcal Vaccine: Pediatrics (0 to 5 Years) and At-Risk Patients (6 to 64 Years) Aged Out No longer eligible based on patient's age to complete this topic RSV MONOCLONAL ANTIBODY Aged Out No l onger eligible based on patient's age to complete this topic Procedures Procedure Name Priority Date/Time Associated Diagnosis Comments BASIC METABOLIC PANEL STAT 10/16/2015 4:33 PM CDT HIV ANTIGEN ANTIBODY COMBO Routine 05/29/2014 9:06 AM EXECUTIVE PASTRY CHEF Supervision of other normal , first trimester [V22.1] ABSTRACT PAP (HIM EXTERNAL RESULT) Routine 05/27/2013 from Last 3 Months or Most Recently Relevant to Health Maintenance Results * (ABNORMAL) Basic metabolic panel (10/16/2015 4:33 PM CDT) Sodium 139 133 - 144 mmol/L [facility] Potassium 3.5 3.4 - 5.3 mmol/L [facility] Chloride 107 94 - 109 mmol/L [facility] Carbon Dioxide 27 20 - 32 mmol/L [facility] Anion Gap 5 3 - 14 mmol/L [facility] Glucose 100(H) 70 - 99 mg/dL [facility] Urea Nitrogen 16 7 - 30 mg/dL [facility] Creatinine 1.18(H) 0.52 - 1.04 mg/dL [facility] GFR Estimate 53(L) >60 mL/min/1.7 m2 [facility] Comment:Non GFR Calc GFR Estimate If Black 64 >60 mL/min/1.7 m2 [facility] Comment: GFR Calc Calcium 9.1 8.5 - 10.1 mg/dL [facility] Blood specimen (specimen) 10/16/2015 4:33 PM CDT 10/16/2015 4:44 PM CDT Mustapha Negro MD LAB - BLOOD MICHELLE ADDISON [facility] Organization Address City/State/ZIP Co de Phone Number [facility] [address] [place], [place] [address] [phone] * HIV Antigen Antibody Combo (05/29/2014 9:06 AM EXECUTIVE PASTRY CHEF) HIV Antigen Antibody Combo Nonreactive HIV-1 p24 Ag & HIV-1/HIV-2 Ab Not Detected NR [facility] Blood specimen (specimen) 05/29/2014 9:06 AM EXECUTIVE PASTRY CHEF 05/29/2014 9:07 AM EXECUTIVE PASTRY CHEF Saida Ramirez MD LAB - BLOOD MICHELLE ADDISON [address] [address] * ABSTRACT PAP-NO CHARGE (05/27/2013) 05/27/2013 Narrative EXTERNAL LAB - 05/27/2013 Patient Reported: Pap smear done May 2013 Patient Reported LAB - HIM EXTERNAL R ESULT EXTERNAL LAB External Lab from Last 3 Months or Most Recently Relevant to Health Maintenance Advance Directives For more information, please contact: [phone] * Full Code (Latest Code Status on File) Date Activated Date Inactivated Comments 01/07/2013 10:32 AM 01/09/2013 7:49 PM Care Teams Fire Equipment Inspector Helper Relationship Specialty Start Date End Date Clinic, [facility] [address] [place] [address] PCP - General 10/13/18
--- OUTSIDE RECORDS SUMMARY | 2023-09-18 19:02 | XMS_ITS | Encounter Summary ---
Author Organization [facility] Address [address] [place] [address] Care Team Providers Care Restaurant Operations Manager Name Role Phone Grace Butler MD Primary Care Provide r Corina Riley APRN ABSTRACT CLERK Unavailable Michaela Etienne MD Unavailable [phone] Corina Riley APRN ABSTRACT CLERK Unavailable Michaela Etienne MD Unavailable [phone] [facility] Primary Care Provider Encounter Details Date Type Department Care Team (Late st Contact Info) Description 07/27/2013 MyC Medical Advice [address] [phone] Korin Noel, RN Social History Tobacco Use Types Packs/Day Years [...] on filedocumented in this encounter Care Teams Restaurant Operations Manager Relationship Specialty Start Date End Date Grace Butler MD PCP - General Pediatrics 06/03/12 10/12/18 Corina Riley APRN ABSTRACT CLERK [address] [place] [address] ERWIN RUBI [address] PCP - Assigned PCP 07/05/16 06/04/18 Michaela Etienne MD [address] [place] [address] ERWIN RUBI [address] PCP - Assigned PCP 06/05/18 06/28/[address] [address] PCP - General 10/13/18 Corina Riley APRN ABSTRACT CLERK [address] [place] [address] ERWIN RUBI [address] Assigned PCP 07/05/16 06/04/18 Michaela Etienne MD [address] [place] [address] ERWIN RUBI [address] Assigned PCP 06/05/18 07/09/18 documented as of this encounter
--- OUTSIDE RECORDS SUMMARY | 2023-09-18 19:02 | XMS_ITS | Encounter Summary ---
Author Organization [place] Address [address] [place] [address] Care Team Providers Care District Administrator Name Role Phone Grace Butler MD Primary Care Provide r Corina Riley APRN DANCING INSTRUCTOR Unavailable Michaela Etienne MD Unavailable [phone] Corina Riley APRN DANCING INSTRUCTOR Unavailable Michaela Etienne MD Unavailable [phone] [facility] Primary Care Provider Encounter Details Date Type Department Care Team (Late st Contact Info) Description 06/21/2013 MyC Medical Advice [address] [phone] Maggi Zhao Y, MANGLE FEEDER Social History Tobacco Use Types Packs/Day Years [...] on filedocumented in this encounter Care Teams District Administrator Relationship Specialty Start Date End Date Grace Butler MD PCP - General Pediatrics 06/03/12 10/12/18 Corina Riley APRN DANCING INSTRUCTOR [address] [place] [address] ERWIN RUBI [address] PCP - Assigned PCP 07/05/16 06/04/18 Michaela Etienne MD [address] [place] [address] ERWIN RUBI [address] PCP - Assigned PCP 06/05/18 06/28/[address] [address] PCP - General 10/13/18 Corina Riley APRN DANCING INSTRUCTOR [address] [place] [address] ERWIN RUBI [address] Assigned PCP 07/05/16 06/04/18 Michaela Etienne MD [address] [place] [address] ERWIN RUBI [address] Assigned PCP 06/05/18 07/09/18 documented as of this encounter
--- OUTSIDE RECORDS SUMMARY | 2023-09-18 19:02 | XMS_ITS | Continuity of Care Document ---
Author Organization [facility] Address [address] [address] [place] [address] Phone Care Team Providers Care Project Executive Name Role Phone Daniel Barron MD Unavailable Unavailabl e Allergies, Adverse Reactions, Alerts Substance Reaction Status Criticality SERTRALINE HCL ItchingItching Active No Informat ion AMOXICILLIN TRIHYDRATE HivesHives Active No In formation POTASSIUM CLAVULANATE Hives Active No Inf ormation morphine ItchingItching Active No Informatio n PENICILLIN ItchingItching Active No Informatio n Medications Medication Instructions Dosage Effective Dates (start - stop) Status Comments Herbal Medications/Supplemen ts unknown Biocidin - Active Herbal Medications/Supplemen ts unknown Loren Bactin-Ar - Active Protonix 40 mg tablet,delayed release take 1 tablet by oral route every day 40 MG - Active ondansetron HCl 4 mg tablet take 1 tablet by oral route 3 times every day as needed 4 MG - Active Procedures Procedure Date Offic/outpt E&m Estab Mod-hi 2 22 Ugi Endo; W/bx 1/mx Level Iv-surg Path Gross/micro Immunocytochemistry, Each Antibody Stool Kits Given Offic/outpt E&m New Mod-hi Advance Directives Directive Yes / No Effective Date File Name No Information Encounters Encounter Description Practice Location Reason(s) For Visit Diagnoses Date Provider Providers Copied on Encounter [facility], [address] [address], [place], [id number], [place] tel:[phone] [facility] No Information 3 Bryan Sanchez. [address] [facility], [facility] [address], [place], [id number] , [place]. tel:[phone] Offic/outpt E&m Estab Mod-hi 2 [facility], [address] [address], [place], [id number], [place] tel:[phone] [facility] GI Symptoms or Concerns (chief complaint) LLQ abdominal painIrregular bowel habits 2 Rajendra Jesus. [address] [facility], [facility] [address], [place], [id number] , [place]. tel: [phone] Referring Provider: Referral Self, USE FOR SELF REFERRALS. [facility], [address] [address], [place], [id number], [place] tel:[phone] [facility] GI Symptoms or Concerns (chief complaint) NauseaLower abdominal pain, unspecifiedChange in bowel habitsOther diseases of stomach and duodenumGastro-esop hageal reflux disease with esophagitis, without bleeding 2 Moises Hurst. [address] [facility], [facility] [address], [place], [id number] , [place]. tel: [phone] Referring Provider: Referral Self, USE FOR SELF REFERRALS. [facility], [address] [address], [place], [id number], [place] tel:[phone] [facility] No Information 2 Nat Tripp. [address] [facility], [facility] [address], [place], [id number] , [place]. tel: [phone] Referring Provider: Referral Self, USE FOR SELF REFERRALS. Offic/outpt E&m New Mod-[facility], [address] [address], [place], [id number], [place] tel:[phone] [facility] GI Symptoms or Concerns (chief complaint) NauseaLaryngitisLow er abdominal pain 2 Nat Tripp. [address] [facility], [place], [id number] , [place]. tel:[phone] Referring Provider: South Dixon MD, [address] [place], [address]. tel:[phone] [facility], [address] [address], [place], [id number], [place] tel:[phone] [facility] No Information 2 Bryan Sanchez. [address] [facility], [facility] [address], [place], [id number] , [place]. tel:[phone] Family History Family Member Type Diagnosis Age At Onset Mother Problem (finding) Cancer, breast Brother Problem (finding) Alcoholism Mother Problem (finding) Thyroid disorder Immunizations Vaccine Date Status Comments SARS-COV-2 (COVID-19) vaccin e, mRNA, spike protein, LNP, preservative free, 100 mcg/0.5mL dose or 50 mcg/0.25mL dose administered Note: [facility] bi -directional interface ; Source: Other Registry SARS-COV-2 (COVID-19) vaccin e, mRNA, spike protein, LNP, preservative free, 100 mcg/0.5mL dose or 50 mcg/0.25mL dose administered Note: [facility] bi -directional interface ; Source: Other Registry measles, mumps and rubella v irus vaccine administered Note: [facility] bi-direct ional interface ; Source: Other Registry tetanus toxoid, reduced diphtheria toxoid, and acellular pertussis vaccine, adsorbed administered Note: [facility] b i-directional interface ; Source: Other Registry Influenza, seasonal, injecta ble, preservative free administered Note: [facility] bi-direct ional interface ; Source: Other Registry Payers Payer name Insurance type Covered constitution party ID Mayra danielson(s) [facility] [id number] Social History Type Description Quantity Date Captured Comments Sex Female Smoking Status No Information Chief Complaint And Reason For Visit No Information Reason For Referral Reason For Referral No Information Plan Of Treatment Date Type Action Status Referral Ordered: Colonoscopy Appointment date/timeframe: 05/08/2022 ordered History Of Present Illness Encounter Date Complaint History Of Prese nt Illness GI Symptoms or Concerns Aleksander fletcher resents today for a scheduled followup. She has difficulty with constant left lower quadrant pain. She describes this as a cramp. Occasionally, this can radiate to her back. Sometimes, it is mild and not bothersome, but other times it can be severe. It does not seem to change with a bowel movement.She notes that her bowels are quite irregular. Sometimes, she can go multiple days without a bowel movement, occasionally having hard stools with straining to pass. Other times, she can have multiple bowel movements in a day. These can be urgent liquid stools. She has never had trouble with blood in her stool.She has a longstanding history of episodes of upper abdominal pain. These happen 3 to 4 times per year. Usually, she takes Carafate with improvement. However, earlier this month, she had a severe episode that was not improved with Carafate. It was associated with nausea and vomiting. She went to the [facility]. She had a normal CBC, comprehensiv GI Symptoms or Concerns GI Symptoms or Concerns A 35-yea r-old female patient who was referred by Dr. [place] Dixon for evaluation of possible reflux, and possible gastritis.The patient reports that she never knew that she had reflux, however she has had problem with frequent laryngitis until she ended up being evaluated by ENT. She ended up having a laryngeal scope during active symptoms, and she said that her back of the throat was raw and this was attributed to possible acid reflux. When further questioned by her ENT physician, it was noted that she has more GI symptoms, and therefore she was referred to us for consultation.The patient reports multiple GI symptoms:She reports 3-4 times a week she might develop nausea, mostly after she eats what she thinks unhealthy food, and this happens about 30 minutes after eating. She reports that unhealthy food may include Burger, Hot Dog, or drinking Coke, and when this happens, she always take a bucket with her to bed as she will always feel nauseous.The patient reports sporadic episodes of epigastric abdominal pain and diarrhea. This occurs every several months. The last couple times occurred after following a healthy diet for many months, and restarting chocolate. However, after the resolution of symptoms, she would have tolerated chocolate well. Last time happened on Wednesday, and the night before she had 3 drinks of vodka on an empty stomach, and on Wednesday she developed the symptoms of epigastric pain and several episodes of watery stools. 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 She continues to have pelvic discomfort mainly on palpation.The patient reports that she was started on Pepcid twice a day with no change in her symptoms of nausea, or the laryngitis. She also reports that she was trialed on Prilosec in the past, which she did not tolerate at all with significant worsening of her nausea. She denies using any NSAIDs on a regular basis. Her appetite is normal without unintentional weight changes. No odynophagia or dysphagia. Her bowel movements are soft, 1-3 bowel movements a day, which she believes is normal to her.PAST MEDICAL HISTORYBenign lower extremity tumor that was resected.Recurrent laryngitis.PAST SURGICAL HISTORYLower extremity resection of benign tumor.Diagnostic laparoscopy for pelvic pain.Septoplasty.Neck surgery.SOCIAL HISTORYFormer smoker.Social alcohol use.FAMILY HISTORYNegative for celiac, IBD, or GI malignancy.Her exam is significant for tenderness in the lower quadrants and the suprapubic area to deep palpation only, very mild discomfort on deep palpation. Functional Status Date Functional Assessmen t No Information Instructions Date Instruction Additional Infor brady RECOMMENDATIONS1. St art Zofran every 8 hours as needed for symptomatic management.2. Start Protonix 40 mg once a day, counseled about correct timing, 30 minutes to 60 minutes before breakfast. Take for 2 months, then stop.3. Check celiac serology and also fecal calprotectin given her lower abdominal pain and tenderness, and these episodes of diarrhea. If elevated, then we will request a colonoscopy to evaluate for any inflammation in the colon or the TI.4. Refer for upper endoscopy to evaluate for reflux esophagitis, gastritis including H. pylori, and to rule out celiac disease.If workup is negative, then we will refer her for a [place] pH testing, off PPI to check if the symptoms are related to acid reflux, and if the test comes back negative, then we will obtain testing for gallbladder starting with repeating ultrasound which she had in the past, and a followup HIDA scan if necessary.Follow up after completion of workup and further testing can be considered accordingly. Related to Nausea Assessments Type Assessment Date No Information Patient Care Teams Name Effective Dates (start - stop) Status Members No Information
--- OUTSIDE RECORDS SUMMARY | 2023-09-18 19:03 | XMS_ITS | Continuity of Care Document ---
Author Organization [facility] Address [address] [address] [place] [address] Phone Care Team Providers Care Big Data Developer Name Role Phone Daniel Barron MD Unavailable [...] Diagnoses Date Provider Providers Copied on Encounter [facility], [address] [address], [place], [id number], [place] tel:[phone] [facility] No Information 3 Bryan Sanchez. [address] [facility], [place], [id number] , [place]. tel:[phone] Offic/outpt E&m Estab Mod-hi 2 [facility], [address] [address], [place], [id number], [place] tel:[phone] [facility] GI Symptoms or Concerns (chief complaint) LLQ abdominal painIrregular bowel habits 2 Rajendra Jesus. [address] [facility], [place], [id number] , [place]. tel: [phone] Referring Provider: Referral Self, USE FOR SELF REFERRALS. [facility], [address] [address], [place], [id number], [place] tel:[phone] [facility] GI Symptoms or Concerns (chief complaint) NauseaLower abdominal pain, unspecifiedChange in bowel habitsOther diseases of stomach and duodenumGastro-esop hageal reflux disease with esophagitis, without bleeding 2 Moises Hurst. [address] [facility], [place], [id number] , [place]. tel: [phone] Referring Provider: Referral Self, USE FOR SELF REFERRALS. [facility], [address] [address], [place], [id number], [place] tel:[phone] [facility] No Information 2 Nat Tripp. [address] [facility], [place], [id number] , [place]. tel: [phone] Referring Provider: Referral Self, USE FOR SELF REFERRALS. Offic/outpt E&m New Mod-[facility], [address] [address], [place], [id number], [place] tel:[phone] [facility] GI Symptoms or Concerns (chief complaint) NauseaLaryngitisLow er abdominal pain 2 Nat Tripp. [address] [facility], [place], [id number] , [place]. tel:[phone] Referring Provider: South Dixon MD, [address] [place], [address]. tel:[phone] [facility], [address] [address], [place], [id number], [place] tel:[phone] [facility] No Information 2 Bryan Sanchez. [address] [facility], [place], [id number] , [place]. tel:[phone] Family History Family Member Type Diagnosis Age [...] Registry Payers Payer name Insurance type Covered alliance party ID Mayra danielson(s) [facility] [id number] Social History Type Description Quantity Date Captured [...] nausea and vomiting. She went to the [facility]. She had a normal CBC, [...]
[2023-09-18] MEDS: HYDROmorphone 0.5 mg/0.5 ml inj 1 MG IM (19:18)
== END 2023-09-18 19:21 | disposition home or self-care (01) ==
LOC: ED 19:00
PROVIDERS: Emergency Provider Emergency Medicine Emergency Medical Services; PCP Physician Assistant Medical
DX: M54.16 Radiculopathy, lumbar region (principal)
CPT/HCPCS: 96372; 99283; 99284; J1170

== ENCOUNTER 2024-11-03 09:53 | Outpatient (CLI) | payer OTHER, SELFPAY ==
--- NOTE | 2024-11-03 10:15 | CRLHL7_ITS ---
For Patients: As a result of the Century Cures Act, medical imaging exams and procedure reports are released immediately into your electronic medical record. You may view this report before your referring provider. If you have questions, please contact your health care provider. INDICATION: irregular cycles/bleeding, check IUD COMPARISON: CT 03/06/2022, ultrasound 03/03/2021 TECHNIQUE: 2D aguillon-scale and color Doppler images were acquired of the pelvis using a transabdominal and transvaginal approach. Transvaginal imaging performed to better visualize the endometrial stripe and ovaries. FINDINGS: Sonographic images demonstrate a normal size and smooth outer contour of the uterus. Uterus measures 9.2 cm in length by 4.7 cm in AP diameter by 5.9 cm in transverse dimension. The myometrium has a normal uniform echotexture. Normal position of an IUD within the endometrial canal. Possible incidental calcification associated with the endometrial stripe. Endometrial thickness 9.8 millimeters. The right ovary measures 3.4 x 2.8 x 3.1 cm in size and the left ovary measures 3.2 x 1.3 x 1.9 cm. The ovaries demonstrate normal arterial and venous blood flow on color Doppler analysis. There are no suspicious fluid collections within the cul-de-sac. Nonvascular nonshadowing solid-appearing structure within the right ovary measures 2.3 x 2.0 x 2.3 cm. IMPRESSION: Normal position of an IUD within the endometrial canal. Endometrium measures 9.8 millimeters. Solid smoothly marginated non shadowing and nonvascular right ovarian structure, low risk. Follow-up ultrasound in 6 months recommended. Dictated by Wolf Carter MD @ 11/03/2024 11:00:23 AM (Electronically Signed)
== END 2024-11-03 09:54 | disposition home or self-care (01) ==
LOC: US 09:53
PROVIDERS: PCP Physician Assistant Medical; Visit Provider Registered Nurse
DX: N92.6 Irregular menstruation, unspecified (principal); R93.89 Abnormal findings on diagnostic imaging of other specified body structures; T83.32XA Displacement of intrauterine contraceptive device, initial encounter
CPT/HCPCS: 76830; 76856